=== PATIENT | female | born 1945 | race Caucasian/White ===

== ENCOUNTER → 2017-05-13 | Outpatient (CLI) | payer MEDICARE ==
[~2017-05-13] MED LIST: ALPRAZOLAM1 MG PO; ARICEPT10 M1 PO; ASPIRIN 81MG TA81 MG PO; ATENOLOL50 MG PO; BUTORPHANOL10 MG/ML NS; CHLORTHALIDONE25 MG PO; CYANOCOBAL1000 MCG/M IM; FEXOFENADINE60 MG PO; HYOSCYAMINE0.125 M1 PO; INDERAL10 MG PO; K-DUR 20MEQ TA20 MEQ PO; MAXALT10 MG PO; MULTI VITAMINS1 TA1 PO; OMEPRAZOLE DR20 MG PO; PERCOCET 5/3251 EACH PO; SIMVASTATIN40 MG PO; TIZANIDINE HCL 44 MG PO; VIACTIV PO; VITAMIN E 400400 IU PO; ZOLPIDEM 10MG T10 MG PO
[2017-05-13 09:21] LABS: BUN 15 mg/dL (7-18)
[2017-05-13 09:23] LABS: GFR (ESTIMATED) 61 ML/MIN (59-)
--- NOTE | 2017-05-13 12:58 | RADIOLOGY REPORT PS360 ---
CT ABD PELVIS W/WO CONTRAST INDICATION: Lower abdominal pain, intermittent vaginal bleeding LOW ABD PAIN ORDERING PHYSICIAN: Foreign Peters MD PATIENT AGE: 72 years COMPARISON: None TECHNIQUE: Axial images are obtained without and with contrast. Sagittal and coronal reformatted images are reviewed as well. FINDINGS: There are small bilateral pleural effusions. Moderate sized hiatal hernia is noted. There are numerous hepatic cysts. The largest cyst is in the lateral segment left hepatic lobe at 2.6 cm. Previously this measured 5 cm. Other cysts appear stable. There is mild prominence of the biliary tree. There has been a prior cholecystectomy. Spleen, adrenal glands, and pancreas have an unremarkable appearance. No renal calculi or hydronephrosis. No obstructing ureteral calculi evident. No intestinal obstruction or free air. There is mild thickening versus nondistention of the proximal transverse colon at the hepatic flexure region. Prior hysterectomy. Unremarkable appearing urinary bladder. No pelvic mass or abnormal fluid collection. No evidence of abscess or diverticulitis. Mild thickening versus nondistention of the junction of the descending and sigmoid colon in the left lower quadrant. There are degenerative changes of the lumbar spine. IMPRESSION: 1. Thickening versus nondistention of the proximal transverse colon and junction of the descending and sigmoid colon. Colitis is a consideration. 2. Prior cholecystectomy with mild prominence of the biliary tree. 3. Hepatic cysts
== END ==
LOC: RAD 09:04
PROVIDERS: Internal Medicine Adolescent Medicine
DX: R10.2 Pelvic and perineal pain (principal); R10.30 Lower abdominal pain, unspecified; N93.9 Abnormal uterine and vaginal bleeding, unspecified
CPT/HCPCS: Q9967

== ENCOUNTER → 2017-08-07 | Outpatient (CLI) | payer MEDICARE ==
[2017-08-07 12:47] LABS: BUN 15 mg/dL (7-18); FREE THYROXIN INDEX 7.3 ug/dl (5.93-13.13)
[2017-08-07 12:48] LABS: GFR (ESTIMATED) 70 ML/MIN (59-)
== END ==
LOC: LAB 11:17
PROVIDERS: Internal Medicine Adolescent Medicine
DX: E05.90 Thyrotoxicosis, unspecified without thyrotoxic crisis or storm (principal); E87.6 Hypokalemia